=== PATIENT | male | born 1975 | race Caucasian/White ===

== ENCOUNTER 2016-09-16 20:20 | Observation (INO) | payer OTHER ==
[~2016-09-16] VITALS: Ht 185.4 cm; Wt 69.0 kg
[2016-09-16 20:36] LABS: BASO % 0.5 % (0.2-1.2); EOS # 0.1 10_X3_uL (0.0-0.5); EOS % 0.8 % (0.8-7.0); GRAN % 72.1 % (34.0-67.9); HEMATOCRIT 40.6 % (40-51); LYMPH # 1.8 10_X3_uL (1.3-3.6); LYMPH % 21.8 % (21.8-53.1); MEAN CORPUSCULAR HEMOGLOBIN 32.6 pg (27.0-33.0); MEAN CORPUSCULAR HGB CONC 34.5 g/dL (32.0-36.0); MEAN CORPUSCULAR VOLUME 94.4 fL (79-92); MEAN PLATELET VOLUME 9.6 fl (7.5-11.5); MONO # 0.4 10_X3_uL (0.3-0.8); MONO % 4.8 % (5.3-12.2); PLATELET COUNT 316 x10_3/uL (163-337); WHITE BLOOD COUNT 8.4 x10_3/uL (4.2-9.1)
[2016-09-16 21:00] LABS: ALBUMIN 4.6 gm/dL (3.4-5.0); ALKALINE PHOSPHATASE 69 U/L (50-136); ALT/SGPT 21 U/L (7.53-40.17); AST/SGOT 23 U/L (6.66-35.34); BILIRUBIN,TOTAL 0.22 mg/dL (0.0-1.0); BLOOD UREA NITROGEN 7 mg/dL (7-18); CALCIUM 9.4 mg/dL (8.7-10.7); CARBON DIOXIDE 23 mmol/L (21-32); CREATINE KINASE 90 U/L (35-232); CREATININE 0.7 mg/dL (0.6-1.3); GLUCOSE,RANDOM 92 mg/dL (70-99); POTASSIUM 3.9 mmol/L (3.5-5.1); SODIUM 141 mmol/L (136-145)
[2016-09-16 23:41] LABS: PARTIAL THROMBOPLASTIN TIME 25.6 SECONDS (21.8-28.4); PROTHROMBIN TIME (PATIENT) 10.2 SECONDS (9.6-10.8)
[2016-09-17 15:59] LABS: CKMB < 1.0 ng/ml (0.0-5.0)
== END 2016-09-17 17:17 | disposition home or self-care (01) ==
LOC: ER 20:20 → MS 21:45
PROVIDERS: General Practice; ADMIT Family Medicine
PROC: 3E0234Z Introduction of Serum, Toxoid and Vaccine into Muscle, Percutaneous Approach (ICD-10-PCS; principal; 2016-09-17)
DX: R07.89 Other chest pain (principal); J44.9 Chronic obstructive pulmonary disease, unspecified; J20.9 Acute bronchitis, unspecified; R06.02 Shortness of breath; I10 Essential (primary) hypertension; F17.210 Nicotine dependence, cigarettes, uncomplicated; F17.220 Nicotine dependence, chewing tobacco, uncomplicated; Z83.3 Family history of diabetes mellitus; Z82.49 Family history of ischemic heart disease and other diseases of the circulatory system; Z95.0 Presence of cardiac pacemaker; Z79.899 Other long term (current) drug therapy; Z79.82 Long term (current) use of aspirin; Z79.1 Long term (current) use of non-steroidal anti-inflammatories (NSAID); Z23 Encounter for immunization
CPT/HCPCS: 36415; 71010; 80053; 80061; 82550; 82553; 83735; 84484; 85025; 85379; 85610; 85730; 90732; 93005; 93041; 96372; 96374; 99070; 99285-25; G0009; G0378; J2930; J7050